=== PATIENT | female | born 1950 | race African-American/Black ===

== ENCOUNTER 2023-09-20 14:04 | Emergency (ER) | payer MEDICARE, MEDICAID ==
[~2023-09-20] VITALS: Ht 160 cm; Wt 70.0 kg
[2023-09-20 14:12] VITALS: O2SAT 99
[2023-09-20 14:56] LABS: BASOPHILS % 1.3 % (0.0-2.0); EOSINOPHILS % 1.2 % (0.0-5.0); HEMATOCRIT. 31.4 % (36.0-48.0); HEMOGLOBIN. 9.8 g/dL (12.0-16.0); LYMPHOCYTES % 21.6 % (20.0-50.0); MEAN CORPUSCULAR HEMOGLOBIN 30.8 pg (28.0-32.0); MEAN CORPUSCULAR HGB CONC 31.4 g/dL (31.0-37.0); MEAN CORPUSCULAR VOLUME 98.2 fL (81.0-99.0); MEAN PLATELET VOLUME 7.5 fl (7.4-10.4); MONOCYTES % 11.5 % (2.0-8.0); NEUTROPHILS % 64.4 % (40.0-76.0); PLATELET 360 x1000/uL (130-400); RED CELL DISTRIBUTION WIDTH 17.6 % (11.6-14.6); WHITE BLOOD COUNT 6.9 x1000/uL (4.5-11.0)
[2023-09-20 15:21] LABS: CHLORIDE 106 mEq/L (98-107); POTASSIUM 4.4 mEq/L (3.5-5.1); SODIUM 142 mEq/L (136-145)
[2023-09-20 15:22] LABS: CARBON DIOXIDE 29 mEq/L (21-32)
[2023-09-20 15:23] LABS: CALCIUM 9.3 mg/dL (8.7-10.4)
[2023-09-20 15:27] LABS: CREATININE 0.8 mg/dL (0.6-1.0); GLUCOSE 87 mg/dL (70-105); UREA NITROGEN BLOOD 9 mg/dL (9-23)
[2023-09-20] MEDS ORDERED: AMOX1TAB16 MT (15:27)
[2023-09-20 16:12] LABS: PROTHROMBIN TIME 11.3 sec (9.6-11.0)
[2023-09-20 18:17] VITALS: BP 149/75; PULSE 83; RESP 18; TEMP 98.9
== END 2023-09-20 18:20 | disposition home or self-care (01) ==
LOC: ER 14:41
DX: R22.0 Localized swelling, mass and lump, head (principal); R50.9 Fever, unspecified; I10 Essential (primary) hypertension; Z85.9 Personal history of malignant neoplasm, unspecified; Z95.0 Presence of cardiac pacemaker
CPT/HCPCS: 80048; 85025; 85610; 36415; 70487; 99285; Z7610

== ENCOUNTER 2023-11-19 23:27 | Inpatient (IN) | payer MEDICARE, MEDICAID ==
[~2023-11-19] VITALS: Ht 165.1 cm; Wt 53.6 kg
[~2023-11-19 23:27] MED LIST: AMOX1TAB16 MT
[2023-11-20] MEDS: ONDANSETRON HCL 4MG/2ML INJ IV STA (01:00)
[2023-11-20] MEDS: MORPHINE SULFATE 4 MG/ML INJ (FOR IV/IM USE) IV STA (01:00)
[2023-11-20] MEDS: SODIUM CHLORIDE 0.9% 1,000 ML IV ONE (01:00)
[2023-11-20 03:31] LABS: BASOPHILS % 0.8 % (0.0-2.0); EOSINOPHILS % 1.3 % (0.0-5.0); HEMATOCRIT. 34.2 % (36.0-48.0); HEMOGLOBIN. 10.7 g/dL (12.0-16.0); LYMPHOCYTES % 22.6 % (20.0-50.0); MEAN CORPUSCULAR HEMOGLOBIN 30.8 pg (28.0-32.0); MEAN CORPUSCULAR HGB CONC 31.2 g/dL (31.0-37.0); MEAN CORPUSCULAR VOLUME 98.8 fL (81.0-99.0); MONOCYTES % 12.1 % (2.0-8.0); NEUTROPHILS % 63.2 % (40.0-76.0); PLATELET 256 x1000/uL (130-400); RED BLOOD CELL COUNT 3.47 mill/uL (4.2-5.4); RED CELL DISTRIBUTION WIDTH 17.1 % (11.6-14.6); WHITE BLOOD COUNT 7.4 x1000/uL (4.5-11.0)
[2023-11-20 03:39] LABS: CHLORIDE 104 mEq/L (98-107); POTASSIUM 3.7 mEq/L (3.5-5.1); SODIUM 140 mEq/L (136-145)
[2023-11-20 03:40] LABS: CALCIUM 9.3 mg/dL (8.7-10.4); CARBON DIOXIDE 33 mEq/L (21-32)
[2023-11-20 03:45] LABS: CREATININE 0.9 mg/dL (0.6-1.0); GLUCOSE 103 mg/dL (70-105); TROPONIN I HIGH SENSITIVITY 7 ng/L (3.0-34); UREA NITROGEN BLOOD 9 mg/dL (9-23)
[2023-11-20 03:47] LABS: ALANINE AMINOTRANSFERASE 19 IU/L (10-49); ALBUMIN 4.2 g/dL (3.2-4.8); ASPARTATE AMINOTRANSFERASE 26 IU/L (<34); BILIRUBIN DIRECT 0.1 mg/dL (<=3.0); BILIRUBIN TOTAL 0.3 mg/dL (0.1-1.0); CREATINE KINASE 48 IU/L (34-145); PROTEIN TOTAL 6.5 g/dL (6.0-8.3)
[2023-11-20] MEDS: MORPHINE SULFATE 4 MG/ML INJ (FOR IV/IM USE) IV NR (05:21)
[2023-11-20 06:55] VITALS: BP 108/67; PULSE 86; RESP 18; TEMP 98.1
[2023-11-20 08:00] VITALS: BP_SYST 123; BP_SYST 127; BP_DIAS 54; BP_DIAS 63; PULSE 100; RESP 19; TEMP 97.7
[2023-11-20] MEDS ORDERED: ACETAMINOPHEN 325MG TABLET PO PRN (09:30)
[2023-11-20] MEDS: HYDROCODONE/ACETAMINOPHEN 5/325MG TABLET PO PRN (10:55)
[2023-11-20 12:00] VITALS: BP 128/58; PULSE 75; RESP 20; TEMP 98.1
[2023-11-20] MEDS: ONDANSETRON HCL 4MG/2ML INJ IV PRN (12:03)
[2023-11-20 16:00] VITALS: BP 120/53; PULSE 76; RESP 19; TEMP 99.1
[2023-11-20] MEDS: MORPHINE SULFATE 2 MG/ML INJ (NOT FOR IM USE) IV PRN (16:35)
[2023-11-20] MEDS ORDERED: FURO40TA5 PO (19:32)
[2023-11-20] MEDS ORDERED: ASPI-1497 PO (19:49)
[2023-11-20 20:00] VITALS: BP 149/66; PULSE 106; TEMP 98.4
[2023-11-21] VITALS: BP 121/68; PULSE 107; RESP 18; TEMP 98
[2023-11-21 04:00] VITALS: BP 130/65; PULSE 97; RESP 18; TEMP 97.8
[2023-11-21 08:00] VITALS: BP 127/70; PULSE 103; RESP 20; TEMP 97.9
[2023-11-21 08:45] LABS: BASOPHILS % 0.5 % (0.0-2.0); EOSINOPHILS % 0.9 % (0.0-5.0); HEMATOCRIT. 36.5 % (36.0-48.0); HEMOGLOBIN. 11.2 g/dL (12.0-16.0); MEAN CORPUSCULAR HEMOGLOBIN 30.5 pg (28.0-32.0); MEAN CORPUSCULAR HGB CONC 30.7 g/dL (31.0-37.0); MEAN CORPUSCULAR VOLUME 99.4 fL (81.0-99.0); MEAN PLATELET VOLUME 8.8 fl (7.4-10.4); MONOCYTES % 13.7 % (2.0-8.0); NEUTROPHILS % 61.9 % (40.0-76.0); PLATELET 278 x1000/uL (130-400); RED BLOOD CELL COUNT 3.67 mill/uL (4.2-5.4); RED CELL DISTRIBUTION WIDTH 16.7 % (11.6-14.6); WHITE BLOOD COUNT 8.5 x1000/uL (4.5-11.0)
[2023-11-21 09:00] LABS: CALCIUM 9.7 mg/dL (8.7-10.4); CARBON DIOXIDE 29 mEq/L (21-32); CHLORIDE 103 mEq/L (98-107); SODIUM 139 mEq/L (136-145)
[2023-11-21 09:06] LABS: CREATININE 0.8 mg/dL (0.6-1.0); GLUCOSE 108 mg/dL (70-105); UREA NITROGEN BLOOD 10 mg/dL (9-23)
[2023-11-21 12:00] VITALS: BP 122/56; PULSE 105; RESP 18; TEMP 99
[2023-11-21 16:00] VITALS: BP 122/60; PULSE 106; RESP 18; TEMP 98.1
[2023-11-21] MEDS ORDERED: NALOXONE HCL 0.4MG/ML VIAL IV PRN (19:45)
[2023-11-21 20:00] VITALS: BP 127/61; PULSE 115; RESP 20; TEMP 98.1
[2023-11-22] VITALS: BP 120/61; PULSE 113; RESP 20; TEMP 97.3; TEMP 97.7
[2023-11-22 04:00] VITALS: BP 112/66; PULSE 74; RESP 20; TEMP 97.5
[2023-11-22 08:00] VITALS: BP 105/69; PULSE 106; RESP 18; TEMP 96.3
[2023-11-22 12:00] VITALS: BP 108/60; PULSE 115; RESP 18; TEMP 96.7
[2023-11-22 16:00] VITALS: BP 135/67; PULSE 113; RESP 18; TEMP 97
[2023-11-22 20:00] VITALS: BP 114/63; PULSE 103; RESP 20; TEMP 97.9
[2023-11-23] VITALS: BP 136/62; PULSE 92; RESP 18; TEMP 96.8
[2023-11-23 04:00] VITALS: BP 136/71; PULSE 94; RESP 18; TEMP 96.4
[2023-11-23 08:00] VITALS: BP 131/66; PULSE 100; RESP 18; TEMP 96.9
[2023-11-23 12:00] VITALS: BP 132/93; PULSE 100; RESP 18; TEMP 97.8
[2023-11-23 16:00] VITALS: BP 141/68; PULSE 80; RESP 19; TEMP 97.3
[2023-11-23 20:00] VITALS: BP 134/79; PULSE 96; RESP 18; TEMP 97.4
[2023-11-24] VITALS: BP 133/82; PULSE 105; RESP 18; TEMP 97.2
[2023-11-24 04:00] VITALS: BP 122/57; PULSE 78; RESP 18; TEMP 96.8
[2023-11-24 20:00] VITALS: BP 147/68; PULSE 83; RESP 18; TEMP 97.5
[2023-11-25] VITALS: BP 147/86; PULSE 106; RESP 16; TEMP 97.3
[2023-11-25 04:00] VITALS: BP 104/55; PULSE 105; RESP 18; TEMP 97.3
[2023-11-25 08:00] VITALS: BP 152/80; PULSE 113; RESP 18; TEMP 97.9
[2023-11-25] MEDS: MORPHINE SULFATE 2 MG/ML INJ (NOT FOR IM USE) IV PRN (11:52)
[2023-11-25 12:00] VITALS: BP 143/85; PULSE 116; RESP 18; TEMP 98
[2023-11-25 16:00] VITALS: BP 155/88; PULSE 113; RESP 18; TEMP 98.2
[2023-11-25 20:00] VITALS: BP 158/92; PULSE 92; RESP 12; TEMP 97.4
[2023-11-26] VITALS: BP 141/75; PULSE 103; RESP 18; TEMP 97.7
[2023-11-26 04:00] VITALS: BP 157/82; PULSE 102; RESP 18; TEMP 97.6
[2023-11-26 08:00] VITALS: BP 142/79; PULSE 113; RESP 20; TEMP 98.1
[2023-11-26 12:00] VITALS: BP 143/79; PULSE 108; RESP 20; TEMP 96.8
[2023-11-26 16:00] VITALS: BP 143/89; PULSE 109; RESP 20; TEMP 98
[2023-11-27 04:00] VITALS: BP 154/78; PULSE 99; RESP 17; TEMP 96.5
[2023-11-27 16:00] VITALS: BP 134/71; PULSE 100; RESP 18; TEMP 97.5
[2023-11-27 20:00] VITALS: BP 135/76; PULSE 109; RESP 18; TEMP 98.2
[2023-11-27] MEDS ORDERED: NALOXONE HCL 0.4MG/ML VIAL IV PRN (21:45)
[2023-11-28] VITALS: BP 139/70; PULSE 109; RESP 17; TEMP 97.2
[2023-11-28 04:00] VITALS: BP 156/77; PULSE 112; RESP 17; TEMP 97
[2023-11-28 08:00] VITALS: BP 151/79; PULSE 108; RESP 19; TEMP 97.9
[2023-11-28 12:00] VITALS: BP 149/70; PULSE 108; RESP 18; TEMP 97.6
[2023-11-28 16:00] VITALS: BP 152/90; PULSE 106; RESP 19; TEMP 98.1
[2023-11-28 20:00] VITALS: BP 154/80; PULSE 113; RESP 20; TEMP 97.9
[2023-11-28] MEDS: HYDROCODONE/ACETAMINOPHEN 5/325MG TABLET PO PRN (21:33)
[2023-11-29] VITALS: BP 149/62; PULSE 100; RESP 20; TEMP 97.5
[2023-11-29 04:00] VITALS: BP 148/71; PULSE 99; RESP 20; TEMP 96.5
[2023-11-29 08:00] VITALS: BP 144/73; PULSE 71; RESP 18; TEMP 97.2
[2023-11-29] MEDS ORDERED: HYDR-4005 MT (10:45)
[2023-11-29 10:53] VITALS: RESP 18
[2023-11-29 10:55] VITALS: BP 131/82; PULSE 73; TEMP 97.9; O2SAT 99
== END 2023-11-29 13:50 | disposition home health service (06) | DRG 347 ==
LOC: ER 23:30 → 6WST 11-20 02:41
PROVIDERS: ADMIT Internal Medicine; ATTEND Internal Medicine
DX: M48.061 Spinal stenosis, lumbar region without neurogenic claudication (principal); J96.01 Acute respiratory failure with hypoxia; I11.9 Hypertensive heart disease without heart failure; D64.9 Anemia, unspecified; G89.29 Other chronic pain; M47.816 Spondylosis without myelopathy or radiculopathy, lumbar region; T78.8XXA Other adverse effects, not elsewhere classified, initial encounter; X58.XXXA Exposure to other specified factors, initial encounter; J47.9 Bronchiectasis, uncomplicated; Z90.11 Acquired absence of right breast and nipple; Z95.0 Presence of cardiac pacemaker; Z85.3 Personal history of malignant neoplasm of breast; Z98.82 Breast implant status
CPT/HCPCS: 36415; 70551; 71045; 71250; 72128; 72131; 72141; 72146; 72148; 80048; 80076; 82550; 84145; 84484; 85025; 97162; 97166; 97530; 99285; C1893; J2270; J2405; J7030